=== PATIENT | female | born 1990 | race Caucasian/White ===

== ENCOUNTER 2016-11-28 15:35 | Outpatient (CLI) | payer OTHER ==
[~2016-11-28] VITALS: Ht 170.2 cm; Wt 100.8 kg
[~2016-11-28 15:35] MED LIST: ACET325T33 PO; BACITUD TOP; PRENAT PO
--- NOTE | 2016-11-28 19:00 | RADRPT ---
PROCEDURE: US OB biophysical profile. CLINICAL INDICATION: labor TECHNIQUE: Multiple sonographic images of the pelvis were obtained. The images were reviewed on a PACS workstation. COMPARISON: Obstetrical ultrasound from 10/13/2015 FINDINGS: There is a single viable intrauterine gestation. Cardiac activity is present with 141 beats per min cabazon. There is a breech presentation. The placenta is posterior and fundal in location. There is no evidence of placental abruption. There is a normal amount of amniotic fluid with in maximum vertical pocket of 6.7 cm. Biophysical profile: movement 2/2 tone 2/2. breathing 2/2 MARISELA 2/2 Total 01/24 RPTAT: AA . IMPRESSION: Normal biophysical profile. Physician Anastasia Date Time Electronically viewed and signed by Physician Anastasia on 11/28/2016 18:59 RA/
--- NOTE | 2016-11-28 19:01 | RADRPT ---
PROCEDURE: Obstetrical ultrasound CLINICAL INDICATION: labor, unknown dates TECHNIQUE: Multiple sonographic images of the pelvis were obtained. The images were reviewed on a PACS workstation. COMPARISON: None LMP: 06/24/2016 FINDINGS: The cervix is not well visualized. There is a single viable intrauterine gestation. Cardiac activity is present with 157 beats per minute. There is a breech presentation. The placenta is posterior and fundal. There is no evidence for an abruption or placenta previa. There is a normal amount of amniotic fluid with a maximum vertical pocket of 6.7 cm. Measurements were made in order to determine age. The results are as follows (cm): BPD =5.66 HC =21.22 AC =19.14 FL =4.07 Estimated gestational age by ultrasound of approximately 23 weeks, 3 days. The estimated date of delivery by ultrasound is 03/24/2017. Estimated gestational age by LMP of approximately 22 weeks, 3 days. The estimated date of delivery by LMP is 03/31/2017. EFW = 604 grams (91st percentile) IMPRESSION: Single viable intrauterine gestation of approximately 23 weeks, 3 days . The estimated date of delivery is 03/24/2017 . Dating by ultrasound is within 1 week of dating by LMP. Breech presentation. Estimated weight in the 91st percentile. RPTAT: EE Physician Anastasia Date Time Electronically viewed and signed by Physician Anastasia on 11/28/2016 19:01 JARRETT
[2016-11-28 19:39] VITALS: Ht 170.2 cm; Wt 100.8 kg
[2016-11-28 19:40] VITALS: BP 119/69; PULSE 70; RESP 18
--- NOTE | 2017-01-09 10:33 | QN ---
Documentation Comment dx-false labor DENA FORMAN MD Jan 09, 2017 10:33
== END 2016-11-28 20:30 | disposition home or self-care (01) ==
LOC: OBT 15:35 → L-D 15:38 → OBT 20:30
DX: O60.02 Preterm labor without delivery, second trimester (principal); Z3A.22 22 weeks gestation of pregnancy
CPT/HCPCS: 76815; 76818; Z7500; G0463

== ENCOUNTER 2017-02-23 15:00 | Outpatient (CLI) | payer OTHER ==
--- NOTE | 2016-11-28 23:03 | PN ---
Date/Time of Note Date/Time of Note DATE: 11/28/16 TIME: 22:53 OB Subjective Subjective Subjective 26 Year-old with SIUP at 23 3/7 wks presents with a chief complaint of cold sx. She states had no care. She states good movement. She denies nausea, vomiting, shortness of breath, chest pain, and abdominal pain between contractions, headache, visual changes, vaginal bleeding or LOF. OB Objective Objective Objective General: Patient appears well, alert and oriented, NAD, appropriate mood and affect ABD: gravid, soft, non-tender. Back: No CVA tenderness (B/L) LE: No clubbing, cyanosis, edema, thigh or calf tenderness bilaterally FHT: 135 bpm , moderate variability with acceleration, no deceleration-category I Contractions: None OB Assessment/Plan Other plan: 26 Year-old with SIUP at 23 3/7 wks presents with URTI. Recommend take tylenol and have more rest. - FHR: No sign of metabolic acidosis- Category I - Continuous EFM, toco - Contractions: None. - Symptoms and sign of labor, preeclampsia, kick count discussed with patient, she voiced understanding. All of her questions answered. - Patient was discharged home in stable condition with the appropriate discharge instructions provided. I would like patient to have close follow-up with Chief L[facility] (list of community physician given) in 1-2 days or return to the ER for worsening symptoms or any other urgent concerns. DEWEY GILMORE Nov 28, 2016 23:03
[~2017-02-23] VITALS: Ht 170.2 cm; Wt 106.2 kg
[~2017-02-23 15:00] MED LIST changes: -ACET325T33 PO; -BACITUD TOP
--- NOTE | 2017-02-23 15:02 | TRIAGE ---
OB Triage Datetime Report Generated by CPN: 02/23/2017 15:02 Datetime: 11/28/2016 19:09 Time of Arrival: 11/28/2016 15:25 Arrived By: Ambulatory Arrived From: Home Chief Complaint: WANTS TO CHECK ON THE BABY Additional Patient Complaints: "PT STATES AT 10 WEEKS SHE TOOK A PILL THAT DIDNT WORK AND SHE WANTS TO CHECK ON THE BABY BUT DOES NOT HAVE A OB PROVIDER " Time Provider Notified: 11/28/2016 16:30 Provider Notified: DR. FORMAN Datetime: 11/28/2016 19:08 Labor Evaluation Frequency: 0 Monitor Mode: External Duration (sec)2399: 0 Resting Tone Joaquin: Relaxed Datetime: 11/28/2016 17:15 Assessment Type: Triage Maternal Assessment Level of Consciousness: Fully Conscious DTR's/Clonus: DTRs 2+; No Clonus Headache: Denies Blurred Vision: No Respiratory Effort: Unlabored; Regular Rhythm; Equal Expansion Breath Sounds, Left: Clear and Equal Breath Sounds, Right: Clear and Equal Nausea/Vomiting: Denies RUQ Epigastric Pain: Denies Facial Edema: None Fall Risk Assessment History of Falling: (0) No Secondary Diagnosis: (0) No Ambulatory Aid: (0) Bedrest/Nurse Assist IV Therapy: (0) No Gait: (0) Normal/Bedrest/Immobile Mental Status: (0) Oriented to Own Ability Fall Score: 0 Fall Risk Score Definition: No Risk: No action required Datetime: 11/28/2016 17:00 Stage of : OB Triage Maternal Assessment Level of Consciousness: Fully Conscious DTR's/Clonus: DTRs 2+; No Clonus Headache: Denies Blurred Vision: No Respiratory Effort: Unlabored; Regular Rhythm; Equal Expansion Breath Sounds, Left: Clear and Equal Breath Sounds, Right: Clear and Equal Nausea/Vomiting: Denies RUQ Epigastric Pain: Denies Lower Extremities Edema: None Degree: None Upper Extremities Edema: None Degree: None Facial Edema: None Temperature Route: Axillary Fall Risk Assessment History of Falling: (0) No Secondary Diagnosis: (0) No Ambulatory Aid: (0) Bedrest/Nurse Assist IV Therapy: (0) No Gait: (0) Normal/Bedrest/Immobile Mental Status: (0) Oriented to Own Ability Fall Score: 0 Fall Risk Score Definition: No Risk: No action required Datetime: 11/28/2016 16:58 Labor Evaluation Frequency: 0 Monitor Mode: External Duration (sec)2399: 0 Resting Tone Joaquin: Relaxed Heart Rate FHR Baseline Rate: 150 Variability: Moderate 6-25 bpm Accelerations: 15X15 Decelerations: None Category: Category I Datetime: 11/28/2016 16:56 Comments: NST REACTIVE FOR GESTATIONAL AGE
[2017-02-23 15:21] VITALS: Ht 170.2 cm; Wt 106.2 kg
[2017-02-23 15:22] VITALS: BP 126/82; PULSE 105
--- NOTE | 2017-02-23 15:51 | RADRPT ---
PROCEDURE: OB ultrasound for biophysical profile CLINICAL INDICATION: well being. Limited care. TECHNIQUE: Multiple sonographic images of the pelvis were obtained. Transabdominal view of the gr avid uterus are available for review. The images were reviewed on a PACS workstation. COMPARISON: OB ultrasound 11/28/2016 FINDINGS: breathing movement = 2/2 tone = 2/2 motion = 2/2 MARISELA = 2/2 MARISELA = 11.6 cm Single live intrauterine with cardiac activity. heart rate equals 150 beats p er minute. Presentation is cephalic. The placenta is fundal. IMPRESSION: 1. Single viable intrauterine gestation. 2. Biophysical profile = 8/8. 3. MARISELA = 11.6 cm. RPTAT: KK .Marck Gamez MD, MD Date Time Electronically viewed and signed by .Marck Gamez MD, MD on 02/23/2017 15:51 .B/
--- NOTE | 2017-02-23 17:44 | CONS ---
Date/Time of Note Date/Time of Note DATE: 02/23/17 TIME: 17:36 Consultation Date/Type/Reason Admit Date/Time February 23, 2017 OB triage consult This patient is a 26 years old 7 para 2 for who had both delivered by section. Her estimated date of confinement is March 17 which makes her 36 weeks and 6 days. She came to triage complaining of pain of abdomen and contractions. On examination she is well-developed well-nourished woman near term. Abdomen is soft no active labor pattern could be identified. heart tracing is normal with fairly good variability and acceleration no decelerations. Her general vital signs are within normal limits with a blood pressure of 126/82 , pulse rate of 105 respiration 18,, and temperature of 97.9. On pelvic examination the cervix was closed long effaced with intact membranes Constitutional: No chills, No diaphoresis, No disoriented, No febrile, No improved, No no complaints, No other, No poor po, No requiring IVF, No requiring O2 Eyes: No discharge, No no complaints, No other, No pain, No redness, No visual change ENT: No bleeding, No congestion, No discharge, No dysphagia, No no complaints, No other, No pain, No sore throat Respiratory: No cough, No no complaints, No other, No pain, No pleuritic pain, No shortness of breath, No sputum, No wheezing Cardiovascular: No chest pain, No edema, No lightheadedness, No no complaints, No orthopenea, No other, No palpitations, No paroxysmal nocturnal dyspnea Gastrointestinal: No blood, No constipation, No decreased appetite, No diarrhea , No flatus, No nausea, No no complaints, No other, No pain, No passing stool, No vomiting Genitourinary: other (As I mentioned on pelvic examination the cervix was closed long with intact membranes), No bleeding, No discharge, No dysuria, No flank pain, No hematuria, No no complaints Musculoskeletal: No back pain, No bone/joint pain, No neck pain, No no complaints, No other, No restricted range of motion, No swelling Skin: No bruising, No erythema, No laceration, No no complaints, No other, No pruritis, No rash, No skin lesions Neurologic: No confusion, No dizziness, No focal-weakness, No headache, No no complaints, No other, No seizure, No syncope Endocrine: No dry skin, No no complaints, No other, No polydypsia, No polyuria , No temp intolerance Additional Comments On ultrasound study the result was single live intrauterine with cardiac activity 150 bpm in cephalic presentation amniotic fluid index was 11.6 cm her biophysical profile was reported 01/24. Disposition. With these normal finding a lack of evidence of any labor pattern she was reassured and was discharged home to be seen by her claims support specialist and to return to the hospital in case of any complication vaginal bleeding or true contractions Social History Smoking Status: Never smoker Exam/Review of Systems Vital Signs Vitals Vital Signs Date Time Temp Pulse Resp B/P Pulse Ox O2 Delivery O2 Flow Rate FiO2 02/23/17 15:22 97.9 105 126/82 IRLANDA MOTT MD Feb 23, 2017 17:44
== END 2017-02-23 17:40 | disposition home or self-care (01) ==
LOC: OBT 15:00 → L-D 15:00 → OBT 17:40
DX: O62.9 Abnormality of forces of labor, unspecified (principal); Z3A.36 36 weeks gestation of pregnancy
CPT/HCPCS: 76818; Z7500; G0463

== ENCOUNTER 2017-03-18 15:58 | Outpatient (CLI) | payer OTHER ==
[~2017-03-18] VITALS: Ht 170.2 cm; Wt 110.2 kg
--- NOTE | 2017-03-18 16:55 | RADRPT ---
PROCEDURE: US biophysical profile. CLINICAL INDICATION: Contractions. TECHNIQUE: Multiple sonographic images of the uterus were obtained. The images were revi ewed on a PACS workstation. COMPARISON: 02/23/2017 FINDINGS: There is a single live intrauterine gestation. heart rate is 128 beats per minute. The position is cephalic. The placenta is right lateral grade II with no abruption or previa. The MARISELA is 11.4 cm. (Normal = 5-20 cm.) Breathing Movement: 2 Gross Body Movement: 2 Tone: 2 Qualitative Amniotic Fluid Volume: 2 TOTAL: 8 IMPRESSION: 1. The biophysical score is 8/8. RPTAT: QQ .Valente Moser MD, MD Date Time Electronically viewed and signed by .Valente Moser MD, on 03/18/2017 16:55 .R/
[2017-03-18 18:05] VITALS: BP 123/79; PULSE 83; RESP 18; Ht 170.2 cm; Wt 110.2 kg
--- NOTE | 2017-03-18 18:42 | RADRPT ---
PROCEDURE: Obstetrical ultrasound. CLINICAL INDICATION: , evaluation. Pelvic pain. Post dates TECHNIQUE: Transabdominal sonographic images of the uterus obtained after first trimester , greater than 14 weeks gestation. Single intrauterine gestation present. COMPARISON: 03/18/2017 FINDINGS: Single intrauterine gestation. There is a cephalic presentation. Measurements were made in order to determine age. The results are as follows: BPD = 39 weeks 2 day(s) HC = 38 weeks 5 day(s) AC = 39 weeks 4 day(s) FL = 39 weeks 0 day(s) MARISELA = not measured Heart rate = 161 beats per minute The placenta is fundal. There is no evidence for an abruption or placenta previa. Ovaries are not visualized. IMPRESSION: Single intrauterine gestation of approximately 39 weeks 1 days by ultrasound criteria. [place] estimated weight = 3764 g RPTAT: AADD .Angelo Parra MD, MD Date Time Electronically viewed and signed by .Angelo Parra MD, on 03/18/2017 18:42 .B/
[2017-03-18 19:15] LABS: ABNORMAL IP MESSAGE 1; HEMATOCRIT 32.7 % (37.0-47.0); HEMOGLOBIN 9.4 g/dl (12.0-16.0); MEAN CORPUSCULAR HEMOGLOBIN 20.6 pg (29.0-33.0); MEAN CORPUSCULAR HGB CONC 28.7 g/dl (32.0-37.0); MEAN CORPUSCULAR VOLUME 71.7 fl (82.0-101.0); PLATELET COUNT 179 10^3/UL (140-415); RED BLOOD COUNT 4.56 10^6/ul (4.20-5.40); RED CELL DISTRIBUTION WIDTH 18.5 % (11.5-14.5); WHITE BLOOD COUNT 8.6 10^3/ul (4.8-10.8)
[2017-03-18 19:20] LABS: POSITIVE DIFF @See below
[2017-03-18 19:42] LABS: ADD UMIC NO; UR ASCORBIC ACID 40 mg/dL (NEGATIVE); UR BILIRUBIN (Dip) NEGATIVE (NEGATIVE); UR BLOOD (Dip) NEGATIVE (NEGATIVE); UR CLARITY SLIGHTLY CLOUDY (CLEAR); UR COLOR YELLOW (YELLOW); UR GLUCOSE (Dip) NEGATIVE (NEGATIVE); UR KETONES (Dip) NEGATIVE (NEGATIVE); UR LEUKOCYTE ESTERASE (Dip) NEGATIVE Leu/ul (NEGATIVE); UR NITRITE (Dip) NEGATIVE (NEGATIVE); UR RBC 1 /HPF (0-5); UR SPECIFIC GRAVITY (Dip) 1.018 (1.003-1.030); UR SQUAMOUS EPITHELIAL CELL FEW /HPF (FEW); UR TOTAL PROTEIN (Dip) NEGATIVE (NEGATIVE); UR UROBILINOGEN (Dip) NEGATIVE (NEGATIVE)
[2017-03-18 20:00] LABS: BARBITURATES Negative (NEGATIVE); BENZODIAZEPINES Negative (NEGATIVE); CANNABINOIDS Negative (NEGATIVE); COCAINE Negative (NEGATIVE); OPIATES Negative (NEGATIVE)
[2017-03-18 20:07] LABS: ANISOCYTOSIS 2+ (0-0); EOSINOPHILS % (M) 2 % (0-7); GIANT THROMBO% (M) 1 % (0-0); HYPOCHROMASIA 2+ (0-0); MICROCYTOSIS 2+ (0-0); MONOCYTES % (M) 5 % (0-11); PLATELET ESTIMATE NORMAL; POIKILOCYTOSIS 1+ (0-0); POLYCHROMASIA 2+ (0-0)
--- NOTE | 2017-03-18 21:35 | PN ---
Triage Information Date/Time Reason for visit: DFM Weeks of Gestation 41w 1d /Para 7/2 Diabetes: none Hypertention: none Additional information Previous x 2. Pt says she went to [facility] twice and then they told her she was too high risk and couldn't take care of her so they sent her to [facility] and she went there and they also did not arrange to deliver her. PMHx: none. PSHx: C-S x 2. NKDA. Objective Vital Signs Date Time Temp Pulse Resp B/P Pulse Ox O2 Delivery O2 Flow Rate FiO2 03/18/17 18:05 98.4 83 18 123/79 Room Air Heart Rate: 140's Heart Rate Comments Reactive. No decels. Contractions: None Results/Medications Result Diagram: 03/18/171905 Results 24 hrs Laboratory Tests Test 03/18/17 16:15 03/18/17 19:06 Urine Color YELLOW Urine Clarity SLIGHTLY CLOUDY A Urine pH 6.0 Urine Specific [place] 1.018 Urine Ketones NEGATIVE Urine Nitrite NEGATIVE Urine Bilirubin NEGATIVE Urine Urobilinogen NEGATIVE Urine Leukocyte Esterase NEGATIVE Urine Microscopic RBC 1 Urine Microscopic WBC 2 Urine Squamous Epithelial Cells FEW Urine Hemoglobin NEGATIVE Urine Glucose NEGATIVE Urine Total Protein NEGATIVE Urine Opiates Screen Negative Urine Barbiturates Negative Urine Amphetamines Screen Negative Urine Benzodiazepines Screen Negative Urine Cocaine Screen Negative Urine Cannabinoids Negative White Blood Count 8.6 Red Blood Count 4.56 Hemoglobin 9.4 L Hematocrit 32.7 L Mean Corpuscular Volume 71.7 L Mean Corpuscular Hemoglobin 20.6 L Mean Corpuscular Hemoglobin Concent 28.7 L Red Cell Distribution Width 18.5 H Platelet Count 179 Mean Platelet Volume Segmented Neutrophils % (Manual) 74 Lymphocytes % (Manual) 20 Monocytes % (Manual) 5 Eosinophils % (Manual) 2 Nucleated Red Blood Cells % 0.0 Absolute Lymphocytes (Manual) 1.7 Absolute Monocytes (Manual) 0.4 Platelet Estimate NORMAL Giant Platelets 1 H Polychromasia 2+ Hypochromasia 2+ Poikilocytosis 1+ Anisocytosis 2+ Microcytosis 2+ Hepatitis B Surface Antigen NEGATIVE HIV (1&2) Antibody NEGATIVE Imaging Results BPP 01/24 MARISELA 11.4 cm. EFW 3794 grams. Disposition: Discharge Assessment/Plan A: IUP at 41w 1d. Postdates. Minimal PNC. P: Too much activity to do a tonight and there are 4 scheduled c- sections tomorrow so have scheduled the pt for a repeat at [address] Dugan on Tuesday 03/20 and gave the pt pre-op instructions. Pt is very happy to have a plan. AMBAR MCKEON MD Mar 18, 2017 21:35
--- NOTE | 2017-03-19 03:12 | TRIAGE ---
OB Triage Datetime Report Generated by CPN: 03/19/2017 03:11 Datetime: 03/18/2017 21:07 Membrane Status: Intact Datetime: 03/18/2017 21:00 Stage of : OB Triage Labor Evaluation Frequency: Occasional Monitor Mode: External Duration (sec)2399: 50-70 Quality: Mild Pattern: Normal: <= 5 Contractions in 10 Minutes Resting Tone [employer]: Relaxed Heart Rate FHR Baseline Rate: 135 Monitor Mode: External US FHR Baseline Changes: No Baseline Change Variability: Moderate 6-25 bpm Accelerations: 15X15 Decelerations: None Category: Category I Datetime: 03/18/2017 20:00 Stage of : OB Triage Labor Evaluation Frequency: Occasional Monitor Mode: External Duration (sec)2399: 50-70 Quality: Mild Pattern: Normal: <= 5 Contractions in 10 Minutes Contraction Comments: Pt denies Heart Rate FHR Baseline Rate: 140 Monitor Mode: External US FHR Baseline Changes: No Baseline Change Variability: Moderate 6-25 bpm Accelerations: 15X15 Decelerations: None Category: Category I Datetime: 03/18/2017 17:58 Assessment Type: Triage Maternal Assessment Level of Consciousness: Fully Conscious DTR's/Clonus: DTRs 2+; No Clonus Headache: Denies Blurred Vision: No Respiratory Effort: Unlabored; Regular Rhythm; Equal Expansion Breath Sounds, Left: Clear and Equal Breath Sounds, Right: Clear and Equal Nausea/Vomiting: Denies RUQ Epigastric Pain: Denies Lower Extremities Edema: None Degree: None Upper Extremities Edema: None Degree: None Facial Edema: None Fall Risk Assessment History of Falling: (0) No Secondary Diagnosis: (0) No Ambulatory Aid: (0) Bedrest/Nurse Assist IV Therapy: (0) No Gait: (0) Normal/Bedrest/Immobile Mental Status: (0) Oriented to Own Ability Fall Score: 0 Fall Risk Score Definition: No Risk: No action required Datetime: 03/18/2017 17:49 Time of Arrival: 03/18/2017 15:54 EGA: 41.1 Arrived By: Ambulatory Arrived From: Home Chief Complaint: C/O DFM Movement: Decreased Contractions: Denies/Absent Rupture of Membranes: Denies Vaginal Bleeding: None Vaginal Discharge: Denies Recent Sexual Intercouse: Denies Abdominal Trauma: Not Applicable Patient Complaints: None Time Provider Notified: 03/18/2017 18:00 Provider Notified: KAUR Initial Plan: BPP/EFW Datetime: 02/23/2017 17:23 Stage of : OB Triage Datetime: 02/23/2017 17:21 Labor Evaluation Frequency: 0 Monitor Mode: External Resting Tone [employer]: Relaxed Heart Rate FHR Baseline Rate: 135 Monitor Mode: External US Variability: Moderate 6-25 bpm Accelerations: 15X15 Decelerations: None Category: Category I Pain Assessment Pain Scale: 0 Pain Presence: None/Denies Pain Type: N/A Pain Goal: 3 Pain Relief Measures: Comfort Measures Datetime: 02/23/2017 16:32 Labor Evaluation Frequency: 0 Monitor Mode: External Resting Tone [employer]: Relaxed Heart Rate FHR Baseline Rate: 135 Monitor Mode: External US Variability: Moderate 6-25 bpm Accelerations: 10X10 Decelerations: None Category: Category I Pain Assessment Pain Scale: 0 Pain Presence: None/Denies Pain Type: N/A Pain Goal: 3 Pain Relief Measures: Comfort Measures Datetime: 02/23/2017 16:04 Stage of : OB Triage Datetime: 02/23/2017 15:25 Vaginal Exam Dilatation (cms): 0.0 Effacement (%): 20 Station: -2 Exam By: s sid Vaginal Bleeding: None Cervix, Consistency: Soft Cervix, Position: Posterior Presentation 'A': Cephalic Datetime: 02/23/2017 15:18 Stage of : OB Triage Assessment Type: Triage Maternal Assessment Level of Consciousness: Fully Conscious DTR's/Clonus: DTRs 2+; No Clonus Headache: Denies Blurred Vision: No Respiratory Effort: Unlabored; Regular Rhythm; Equal Expansion Breath Sounds, Left: Clear and Equal Breath Sounds, Right: Clear and Equal Nausea/Vomiting: Denies RUQ Epigastric Pain: Denies Facial Edema: None Temperature Route: Axillary Fall Risk Assessment History of Falling: (0) No Secondary Diagnosis: (0) No Ambulatory Aid: (0) Bedrest/Nurse Assist IV Therapy: (0) No Gait: (0) Normal/Bedrest/Immobile Mental Status: (0) Oriented to Own Ability Fall Score: 0 Fall Risk Score Definition: No Risk: No action required Labor Evaluation Frequency: APPLIED Monitor Mode: External Resting Tone [employer]: Relaxed Heart Rate FHR Baseline Rate: 145 Monitor Mode: External US Variability: Moderate 6-25 bpm Decelerations: None Pain Assessment Pain Scale: 8 Pain Presence: Intermittent Pain Type: Cramping; Contraction Pain Location: Abdomen Pain Goal: 3 Pain Relief Measures: Comfort Measures Datetime: 02/23/2017 15:16 Time of Arrival: 02/23/2017 14:50 EGA: 37.6 Arrived By: Ambulatory Arrived From: Home Chief Complaint: C/O UC'S SINCE THIS AM, BLEEDING OR LEAKING OF FLUID Movement: Decreased Contractions: Irregular Contractions: Q1 HOUR Rupture of Membranes: Denies Vaginal Bleeding: None Vaginal Discharge: Denies Recent Sexual Intercouse: Denies Abdominal Trauma: Not Applicable Patient Complaints: Contractions Time Provider Notified: 02/23/2017 16:04 Provider Notified: foroohar Initial Plan: MONITOR, VE, Datetime: 11/28/2016 19:45 EGA: 25.3 Datetime: 11/28/2016 17:15 Fall Score: 0 Fall Risk Score Definition: No Risk: No action required Datetime: 11/28/2016 17:00 Fall Score: 0 Fall Risk Score Definition: No Risk: No action required
[2017-03-21 13:43] LABS: RUBELLA ANTIBODY - IGG 4.21 index
== END 2017-03-18 21:36 | disposition home or self-care (01) ==
LOC: OBT 15:58 → L-D 15:59 → OBT 21:36
PROVIDERS: ATTEND Obstetrics & Gynecology
DX: O36.8130 Decreased fetal movements, third trimester, not applicable or unspecified (principal); Z3A.41 41 weeks gestation of pregnancy
CPT/HCPCS: 76815; 76818; 80307; 81001; 85025; 86592; 86703; 86762; 86900; 86901; 87340; Z7500; 81003; G0463

== ENCOUNTER 2017-03-20 05:54 | Inpatient (IN) | payer OTHER ==
[~2017-03-20] VITALS: Ht 170.2 cm; Wt 110.9 kg
[2017-03-20] MEDS ORDERED: LACTATED RINGER'S 1,000 ML IV SCH (06:06)
[2017-03-20 06:29] VITALS: Ht 170.2 cm; Wt 110.9 kg
[2017-03-20 06:30] VITALS: BP 131/90; PULSE 105; RESP 18
[2017-03-20] MEDS ORDERED: OXYTOCIN 30 UNITS/LR 500 ML IV PRN ×2 (06:30→11:30)
[2017-03-20] MEDS ORDERED: OXYTOCIN 30 UNITS/LR 500 ML IV SCH (06:30)
[2017-03-20] MEDS ORDERED: CARBOPROST 250 MCG INJ IM PRN ×2 (06:30→11:30)
[2017-03-20] MEDS ORDERED: METHYLERGONOVINE 0.2 MG INJ IM PRN ×2 (06:30→11:30)
[2017-03-20] MEDS ORDERED: CEFAZOLIN 2 GM/50 ML (PMX) 50 ML IV SCH (06:30)
[2017-03-20] MEDS ORDERED: MISOPROSTOL 200 MCG TAB PR PRN ×2 (06:30→11:30)
[2017-03-20 06:37] LABS: ABNORMAL IP MESSAGE 1; BASOPHIL # 0.1 10^3/ul (0.0-0.1); BASOPHILS % 0.6 % (0.0-2.0); EOSINOPHILS # 0.1 10^3/ul (0.0-0.5); EOSINOPHILS % 0.9 % (0.0-7.0); HEMATOCRIT 30.2 % (37.0-47.0); HEMOGLOBIN 8.9 g/dl (12.0-16.0); LYMPHOCYTES # 2.3 10^3/ul (0.8-2.9); LYMPHOCYTES % 27.7 % (15.0-51.0); MEAN CORPUSCULAR HEMOGLOBIN 21.1 pg (29.0-33.0); MEAN CORPUSCULAR HGB CONC 29.5 g/dl (32.0-37.0); MEAN CORPUSCULAR VOLUME 71.7 fl (82.0-101.0); MONOCYTE # 0.8 10^3/ul (0.3-0.9); MONOCYTES % 8.9 % (0.0-11.0); NEUTROPHIL # 5.2 10^3/ul (1.6-7.5); NEUTROPHILS % 61.5 % (39.0-77.0); PLATELET COUNT 172 10^3/UL (140-415); RED BLOOD COUNT 4.21 10^6/ul (4.20-5.40); RED CELL DISTRIBUTION WIDTH 18.5 % (11.5-14.5); WHITE BLOOD COUNT 8.4 10^3/ul (4.8-10.8)
[2017-03-20 06:50] LABS: POSITIVE DIFF @See below
[2017-03-20 07:04] LABS: INR 0.91; PROTIME 12.3 Sec (12.2-14.2)
[2017-03-20 07:05] LABS: PARTIAL THROMBOPLASTIN TIME 28.3 Sec (25.0-35.0)
[2017-03-20] MEDS ORDERED: morphine SULFATE/PF (10 MG/10 ML) INJ ONE (07:40)
[2017-03-20] MEDS ORDERED: FENTAnyl 50 MCG/ML VIAL ONE (07:41)
[2017-03-20] MEDS ORDERED: PHENYLephrine (100 MCG/ML) 5ML SYG ONE ×2 (07:41→08:19)
[2017-03-20] MEDS ORDERED: DEXAMETHASONE 4 MG/ML 1 ML INJ ONE (07:56)
[2017-03-20] MEDS ORDERED: ONDANSETRON 4 MG INJ ONE (07:56)
--- NOTE | 2017-03-20 08:43 | SIPON ---
Date/Time of Note Date/Time of Note DATE: 03/20/17 TIME: 08:41 Operative Report Preoperative Diagnosis iup 41 weeks with some contractions ho of c/s x2 desires repeat Postoperative Diagnosis same Operation/Procedure Performed repeat lstc/s Surgeon see signature line human resources assistant manager ashley chavis Anesthesia: spinal Estimated blood loss: other Transfusion Required none Specimen placenta Grafts/Implants none Complications none DENA FORMAN MD Mar 20, 2017 08:43
[2017-03-20] MEDS ORDERED: KETOROLAC 30 MG INJ IV PRN (09:00)
[2017-03-20] MEDS ORDERED: ONDANSETRON 4 MG INJ IV PRN (09:00)
[2017-03-20] MEDS ORDERED: NALOXONE (0.4 MG/ML) INJ IV PRN (09:00)
[2017-03-20] MEDS ORDERED: HYDROmorphONE 1 MG/ML SYG IV PRN (09:00)
[2017-03-20] MEDS ORDERED: TRIMETHOBENZAMIDE 100 MG/ML VIAL IM PRN (09:00)
[2017-03-20] MEDS ORDERED: ZOLPIDEM 5 MG TAB PO PRN (09:00)
--- NOTE | 2017-03-20 09:38 | HP ---
DATE OF ADMISSION: 03/20/2017 HISTORY OF PRESENT ILLNESS: The patient is a 26-year-old G7, P2, who presents at 41 weeks complaining of uterine contractions. The patient has a history of section x2 and limited care. The patient presents with some contractions and pain. PAST MEDICAL HISTORY: None. PAST SURGICAL HISTORY: section x2. MEDICATIONS: vitamins. PHYSICAL EXAMINATION: VITAL SIGNS: Stable. HEART: Regular rhythm. LUNGS: Clear to auscultation bilaterally. ABDOMEN: Soft, nontender, no guarding. Fundal height is 40 cm. EXTREMITIES: No edema. IMPRESSION: Intrauterine at 41 weeks. The patient presents with cramping and in labor. The patient presented for repeat section. Risks and benefits discussed. Risks of infection, bleeding, damage to organs, possibility of blood transfusion all discussed with patient. The patient understands and consents to procedure. Dictated By: Dawit Dugan MD /kevin/nayeli /Document#: [id number]
--- NOTE | 2017-03-20 09:44 | OPR ---
DATE OF OPERATION: 03/20/2017 PREOPERATIVE DIAGNOSIS: 1. Intrauterine at 41 weeks. 2. Patient with a history of section x2 and desires repeat. 3. Patient presents in labor. POSTOPERATIVE DIAGNOSIS: 1. Intrauterine at 41 weeks. 2. Patient with a history of section x2 and desires repeat. 3. Patient presents in labor. SURGEON: Dawit Dugan MD MASTER TECHNICIAN: OPERATIVE PROCEDURE: Repeat low-segment transverse section. FINDINGS: 1. Viable . 2. Uterine window. 3. Normal tubes and ovaries. SPECIMEN: Placenta. ESTIMATED BLOOD LOSS: 600 COMPLICATIONS: None. INDICATIONS: The patient is a 26-year-old G7, P2 who presents at 41 weeks with poor care, complaining of some contractions. The patient has a history of section x2 and desires repeat. Risks and benefits discussed including infection, bleeding, damage to organs, possibility of blood transfusion all discussed with patient. Patient consents to the repeat section. DESCRIPTION OF PROCEDURE: The patient was taken to the operating room where spinal was felt to be adequate. The patient was then prepped and draped in normal sterile fashion. After spinal was confirmed, using a scalpel, a Pfannenstiel incision was made. Incision was taken down to underlying fascia. The fascia was nicked in the midline and extended laterally in both directions using Mcgill scissors. The fascia was taken off the rectus muscles both superiorly and inferiorly. The peritoneum identified, entered bluntly. Incision was extended superiorly and inferiorly. Bladder blade placed in. Bladder flap created. The bladder flap was then taken down. At this point, it was noted that the patient had a uterine window. Bladder flap was then created down and a higher incision had to be made. The incision was then done. The uterine incision was extended with manual extension. The infant's head was delivered atraumatically, bulb suctioned and the rest of the infant was delivered. Cord cut and clamped. A second delay was done. The placenta was delivered. Uterus exteriorized and cleared of all blood clots and debris. Uterine incision was closed with 0 Monocryl in running fashion, second imbricating layer was also placed. The uterus was packed into the abdominal cavity. Good hemostasis was noted. The blood was cleared from the gutters. The rectus muscles and peritoneum were brought together in the midline using a 2-0 Vicryl. The fascia was closed with 0 Vicryl. Subcu fat was closed with 3-0 plain. The skin was closed with zachary. The patient tolerated the procedure well. Needle counts correct x2. The patient was taken to recovery. Dictated By: Dawit Dugan MD /kevin/nayeli /Document#: [id number]
[2017-03-20] MEDS: DIPHENHYDRAMINE 50 MG INJ IV PRN ×2 (10:12→18:44)
[2017-03-20] MEDS ORDERED: LANOLIN 7 GM TUBE TOP PRN (11:30)
[2017-03-20 11:40] VITALS: BP 117/74; PULSE 79; RESP 18
[2017-03-20] MEDS: HYDROmorphONE 1 MG/ML SYG IV PRN ×2 (11:55→21:27)
[2017-03-20 12:15] VITALS: BP 114/73; PULSE 85; RESP 18
[2017-03-20 15:15] VITALS: BP 118/62; PULSE 86; RESP 18
[2017-03-20] MEDS: OXYTOCIN 30 UNITS/LR 500 ML IV SCH (15:15)
[2017-03-20] MEDS: LACTATED RINGER'S 1,000 ML IV SCH (18:44)
[2017-03-20] MEDS: IBUPROFEN 800 MG TAB PO SCH ×2 (19:00→22:00)
[2017-03-20 20:25] VITALS: BP 125/81; PULSE 90; RESP 18
[2017-03-20 23:30] VITALS: BP 121/80; PULSE 92; RESP 18
[2017-03-21] MEDS: LACTATED RINGER'S 1,000 ML IV SCH ×4 (02:01→18:31)
[2017-03-21 04:15] VITALS: BP 104/65; PULSE 85; RESP 18
[2017-03-21] MEDS: DIPHENHYDRAMINE 50 MG INJ IV PRN (04:21)
[2017-03-21] MEDS: IBUPROFEN 800 MG TAB PO SCH ×3 (06:00→22:30)
[2017-03-21 08:30] VITALS: BP 124/75; PULSE 91; RESP 16
[2017-03-21] MEDS ORDERED: OXYCODONE/ACETAMINOPHEN (5/325) TAB PO PRN (08:30)
[2017-03-21] MEDS: PRENATAL VITAMIN PO SCH (08:57)
[2017-03-21] MEDS: OXYCODONE/ACETAMINOPHEN (5/325) TAB PO PRN ×2 (08:58→15:41)
[2017-03-21] MEDS: OXYTOCIN 30 UNITS/LR 500 ML IV SCH (09:00)
[2017-03-21 11:36] LABS: ABNORMAL IP MESSAGE 1; BASOPHILS % 0.2 % (0.0-2.0); EOSINOPHILS % 0.5 % (0.0-7.0); HEMATOCRIT 26.5 % (37.0-47.0); HEMOGLOBIN 7.1 g/dl (12.0-16.0); LYMPHOCYTES # 2.5 10^3/ul (0.8-2.9); LYMPHOCYTES % 30.5 % (15.0-51.0); MEAN CORPUSCULAR HGB CONC 26.8 g/dl (32.0-37.0); MEAN CORPUSCULAR VOLUME 74.6 fl (82.0-101.0); MONOCYTE # 0.5 10^3/ul (0.3-0.9); NEUTROPHILS % 62.1 % (39.0-77.0); PLATELET COUNT 160 10^3/UL (140-415); RED BLOOD COUNT 3.55 10^6/ul (4.20-5.40); RED CELL DISTRIBUTION WIDTH 18.9 % (11.5-14.5); WHITE BLOOD COUNT 8.1 10^3/ul (4.8-10.8)
[2017-03-21 11:54] LABS: MEAN PLATELET VOLUME 12.7 fl (7.4-10.4); POSITIVE DIFF @See below
[2017-03-21 13:42] LABS: RUBELLA ANTIBODY - IGG 3.89 index
[2017-03-21 15:43] VITALS: BP 119/65; PULSE 92; RESP 16
--- NOTE | 2017-03-21 16:31 | PN ---
Date/Time of Note Date/Time of Note DATE: 03/21/17 TIME: 16:29 OB Subjective Subjective Subjective Post C section day 1 Doing Well Afebrile Ambulatory Chest Clear Breasts are soft , Nipples are intact Abdomen is soft Fundus is firm Moderate amount of lochia Incision is clean ,No evidence of infection No calf tenderness No ankle edema Laboratory Tests Test 03/21/17 10:28 White Blood Count 8.110^3/ul Red Blood Count 3.5510^6/ul Hemoglobin 7.1g/dl Hematocrit 26.5% Mean Corpuscular Volume 74.6fl Mean Corpuscular Hemoglobin 20.0pg Mean Corpuscular Hemoglobin Concent 26.8g/dl Red Cell Distribution Width 18.9% Platelet Count 78800^3/UL Mean Platelet Volume 12.7fl Neutrophils % 62.1% Lymphocytes % 30.5% Monocytes % 6.0% Eosinophils % 0.5% Basophils % 0.2% Nucleated Red Blood Cells % 0.0/100WBC Neutrophils # 5.010^3/ul Lymphocytes # 2.510^3/ul Monocytes # 0.510^3/ul Eosinophils # 0.010^3/ul Basophils # 0.010^3/ul Nucleated Red Blood Cells # 0.010^3/ul Rapid Plasma Reagin NONREACTIVE Current Medications Medications (Trade) Dose Ordered Sig/Jace Route PRN Reason Start Time Stop Time Status Last Admin Dose Admin Lactated Ringer's 1,000 ml @ 125 mls/hr Q8H IV 03/20/17 06:06 03/20/17 11:05 DC 03/20/17 06:06 Cefazolin Sodium/ Dextrose 50 ml @ 100 mls/hr ONCE IV 03/20/17 06:30 03/20/17 11:05 DC 03/20/17 08:01 Oxytocin/Lactated Ringer's 500 ml @ 125 mls/hr ONCE IV 03/20/17 06:30 03/20/17 11:05 DC 03/20/17 10:15 Oxytocin/Lactated Ringer's 500 ml @ 0 mls/hr ONCE PRN IV For Hemorrhage Management 03/20/17 06:30 03/20/17 11:05 OK Methylergonovine Maleate (Methergine) 0.2 mg ONCE PRN IM VAGINAL BLEEDING 03/20/17 06:30 03/20/17 11:05 DC Carboprost Tromethamine (Hemabate) 250 mcg ONCE PRN IM VAGINAL BLEEDING 03/20/17 06:30 03/20/17 11:05 DC Misoprostol (Cytotec) 1,000 mcg ONCE PRN MA VAGINAL BLEEDING 03/20/17 06:30 03/20/17 11:05 DC Morphine Sulfate (Duramorph) 10 mg STK-MED ONCE .ROUTE 03/20/17 07:40 03/20/17 07:41 DC Fentanyl (Sublimaze) 100 mcg STK-MED ONCE .ROUTE 03/20/17 07:41 03/20/17 07:42 DC Phenylephrine HCl (Raphael-Synephrine Inj Syg) 500 mcg STK-MED ONCE .ROUTE 03/20/17 07:41 03/20/17 07:42 DC Ondansetron HCl (Zofran Inj) 4 mg STK-MED ONCE .ROUTE 03/20/17 07:56 03/20/17 07:57 DC Dexamethasone (Decadron) 4 mg STK-MED ONCE .ROUTE 03/20/17 07:56 03/20/17 07:57 DC Phenylephrine HCl (Raphael-Synephrine Inj Syg) 500 mcg STK-MED ONCE .ROUTE 03/20/17 08:19 03/20/17 08:20 DC Naloxone HCl (Narcan) 0.1 mg Q2M PRN IV FOR RESP RATE 8 OR LESS 03/20/17 09:00 03/21/17 08:59 DC Ketorolac Tromethamine (Toradol) 30 mg Q6H PRN IV PAIN 03/20/17 09:00 03/21/17 08:59 DC 03/20/17 10:12 Hydromorphone HCl (Dilaudid) 0.2 mg Q3H PRN IV PAIN LEVEL 1-5 03/20/17 09:00 03/21/17 08:59 DC Hydromorphone HCl (Dilaudid) 0.4 mg Q3H PRN IV PAIN LEVEL 6-10 03/20/17 09:00 03/21/17 08:59 DC 03/20/17 21:27 Diphenhydramine HCl (Benadryl) 25 mg Q6H PRN IV ITCHING 03/20/17 09:00 03/21/17 08:59 DC 03/21/17 04:21 Ondansetron HCl (Zofran Inj) 4 mg Q6H PRN IV NAUSEA AND/OR VOMITING 03/20/17 09:00 03/21/17 08:59 DC Trimethobenzamide HCl (Tigan) 200 mg Q6H PRN IM NAUSEA AND/OR VOMITING 03/20/17 09:00 03/21/17 08:59 DC Zolpidem Tartrate 5 mg 5 mg HS MAY REPEAT X 1 PRN PO INSOMNIA 03/20/17 09:00 03/21/17 08:59 DC Lactated Ringer's 1,000 ml @ 125 mls/hr Q8H IV 03/20/17 11:01 03/21/17 02:01 Oxytocin/Lactated Ringer's 500 ml @ 125 mls/hr Q4H IV 03/20/17 11:01 03/20/17 19:00 DC 03/20/17 15:15 Ibuprofen (Motrin) 800 mg Q8 PO 03/20/17 14:00 03/21/17 13:41 Simethicone (Mylicon) 160 mg Q8H PRN PO DISTENSION/GAS/BLOATING 03/20/17 11:30 Lanolin 1 applic 1 applic BEDSIDE MEDICATION PRN TOP BEDSIDE FOR SHAWANDA TO NIPPLES 03/20/17 11:30 03/20/17 18:43 Oxytocin/Lactated Ringer's 500 ml @ 0 mls/hr ONCE PRN IV For Hemorrhage Management 03/20/17 11:30 Methylergonovine Maleate (Methergine) 0.2 mg ONCE PRN IM VAGINAL BLEEDING 03/20/17 11:30 Carboprost Tromethamine (Hemabate) 250 mcg ONCE PRN IM VAGINAL BLEEDING 03/20/17 11:30 Misoprostol (Cytotec) 1,000 mcg ONCE PRN MA VAGINAL BLEEDING 03/20/17 11:30 Prenat Multivit/ [place]/Iron/Folic Ac () 1 tab DAILY PO 03/21/17 09:00 03/21/17 08:57 Oxycodone/ Acetaminophen (Percocet (5/ 325)) 1 tab Q4H PRN PO PAIN LEVEL 1-5 03/21/17 08:30 Oxycodone/ Acetaminophen (Percocet (5/ 325)) 2 tab Q4H PRN PO PAIN LEVEL 6-10 03/21/17 08:30 03/21/17 15:41 Ferrous Sulfate (Ferrous Sulfate (Ec)) 325 mg BID PO 03/21/17 21:00 UNV New born is doing well, Breast feeding IRLANDA MOTT MD Mar 21, 2017 16:31
[2017-03-21 20:00] VITALS: BP 131/68; PULSE 92; RESP 18
[2017-03-21] MEDS: FERROUS SULFATE (EC) 325 MG TAB PO SCH (21:24)
[2017-03-22] MEDS: LACTATED RINGER'S 1,000 ML IV SCH (03:01)
[2017-03-22 04:15] VITALS: BP 111/86; PULSE 90; RESP 18
[2017-03-22] MEDS: IBUPROFEN 800 MG TAB PO SCH ×3 (06:21→22:00)
[2017-03-22 08:30] VITALS: BP 134/83; PULSE 94; RESP 20
[2017-03-22] MEDS: FERROUS SULFATE (EC) 325 MG TAB PO SCH ×2 (09:07→20:13)
[2017-03-22] MEDS: PRENATAL VITAMIN PO SCH (09:08)
[2017-03-22] MEDS: OXYCODONE/ACETAMINOPHEN (5/325) TAB PO PRN ×2 (09:08→20:14)
[2017-03-22 16:15] VITALS: BP 130/80; PULSE 95; RESP 20
--- NOTE | 2017-03-22 19:47 | PN ---
Date/Time of Note Date/Time of Note DATE: 03/22/17 TIME: 19:45 OB Subjective Subjective Subjective Patient passed flatus. Breast-feeding. Denies any complaint. Tolerating regular diet. Ambulating.Denies any chest pain, shortness of breath, dizziness or lightheadedness OB Objective Objective Objective Hematology - 72 Hrs Test 03/20/17 06:20 03/21/17 10:28 White Blood Count 8.410^3/ul (4.8-10.8) 8.110^3/ul (4.8-10.8) Red Blood Count 4.2110^6/ul (4.20-5.40) 3.5510^6/ul (4.20-5.40) L Hemoglobin 8.9g/dl (12.0-16.0) L 7.1g/dl (12.0-16.0) #L Hematocrit 30.2% (37.0-47.0) L 26.5% (37.0-47.0) L Mean Corpuscular Volume 71.7fl (82.0-101.0) L 74.6fl (82.0-101.0) L Mean Corpuscular Hemoglobin 21.1pg (29.0-33.0) L 20.0pg (29.0-33.0) L Mean Corpuscular Hemoglobin Concent 29.5g/dl (32.0-37.0) L 26.8g/dl (32.0-37.0) L Red Cell Distribution Width 18.5% (11.5-14.5) H 18.9% (11.5-14.5) H Platelet Count 46266^3/UL (140-415) 05478^3/UL (140-415) Mean Platelet Volume fl (7.4-10.4) 12.7fl (7.4-10.4) #H Neutrophils % 61.5% (39.0-77.0) 62.1% (39.0-77.0) Lymphocytes % 27.7% (15.0-51.0) 30.5% (15.0-51.0) Monocytes % 8.9% (0.0-11.0) 6.0% (0.0-11.0) Eosinophils % 0.9% (0.0-7.0) 0.5% (0.0-7.0) Basophils % 0.6% (0.0-2.0) 0.2% (0.0-2.0) Nucleated Red Blood Cells % 0.0/100WBC (0.0-0.0) 0.0/100WBC (0.0-0.0) Neutrophils # 5.210^3/ul (1.6-7.5) 5.010^3/ul (1.6-7.5) Lymphocytes # 2.310^3/ul (0.8-2.9) 2.510^3/ul (0.8-2.9) Monocytes # 0.810^3/ul (0.3-0.9) 0.510^3/ul (0.3-0.9) Eosinophils # 0.110^3/ul (0.0-0.5) 0.010^3/ul (0.0-0.5) Basophils # 0.110^3/ul (0.0-0.1) 0.010^3/ul (0.0-0.1) Nucleated Red Blood Cells # 0.010^3/ul (0.0-0.0) 0.010^3/ul (0.0-0.0) General appearance: Alert and oriented 4. Patient does not appear to be in any acute distressAbdomen: Soft, fundus firm nontender. Appropriate tenderness in the incision. Incision clean dry and intact Normal bowel sounds audible Extremities: No calf tenderness, no click no edema Breast: No evidence of myositis or fascia OB Assessment/Plan Other Assessment: Postoperative day #2 Status post repeat section Doing well Anemia due to chronic anemia and surgery. Asymptomatic Patient had no care U tox requested. Continue routine postop care Follow up with urine drug screen tomorrow FRANCIS HIRSCH MD Mar 22, 2017 19:47
[2017-03-22 20:17] VITALS: BP 128/87; PULSE 95; RESP 18
[2017-03-23 04:00] VITALS: BP 130/92; PULSE 96; RESP 18
[2017-03-23] MEDS: IBUPROFEN 800 MG TAB PO SCH (05:41)
[2017-03-23 07:40] VITALS: BP 124/71; PULSE 99; RESP 18
[2017-03-23] MEDS: FERROUS SULFATE (EC) 325 MG TAB PO SCH (08:42)
[2017-03-23] MEDS: PRENATAL VITAMIN PO SCH (08:42)
--- NOTE | 2017-03-23 11:29 | DS ---
Date/Time of Note Date/Time of Note DATE: 03/23/17 TIME: 11:25 Obstetrical Discharge Record Final Diagnosis Final Diagnosis: Term delivered Section Section: Repeat Complications Gestational Age at Rupture Post C section day 3 Doing Well Afebrile Ambulatory Chest Clear Breasts are soft , Nipples are intact Abdomen is soft Fundus is firm Moderate amount of lochia Incision is clean ,No evidence of infection No calf tenderness No ankle edema Current Medications Medications (Trade) Dose Ordered Sig/Jace Route PRN Reason Start Time Stop Time Status Last Admin Dose Admin Lactated Ringer's 1,000 ml @ 125 mls/hr Q8H IV 03/20/17 06:06 03/20/17 11:05 DC 03/20/17 06:06 Cefazolin Sodium/ Dextrose 50 ml @ 100 mls/hr ONCE IV 03/20/17 06:30 03/20/17 11:05 DC 03/20/17 08:01 Oxytocin/Lactated Ringer's 500 ml @ 125 mls/hr ONCE IV 03/20/17 06:30 03/20/17 11:05 DC 03/20/17 10:15 Oxytocin/Lactated Ringer's 500 ml @ 0 mls/hr ONCE PRN IV For Hemorrhage Management 03/20/17 06:30 03/20/17 11:05 DC Methylergonovine Maleate (Methergine) 0.2 mg ONCE PRN IM VAGINAL BLEEDING 03/20/17 06:30 03/20/17 11:05 DC Carboprost Tromethamine (Hemabate) 250 mcg ONCE PRN IM VAGINAL BLEEDING 03/20/17 06:30 03/20/17 11:05 DC Misoprostol (Cytotec) 1,000 mcg ONCE PRN [place] VAGINAL BLEEDING 03/20/17 06:30 03/20/17 11:05 DC Morphine Sulfate (Duramorph) 10 mg STK-MED ONCE .ROUTE 03/20/17 07:40 03/20/17 07:41 DC Fentanyl (Sublimaze) 100 mcg STK-MED ONCE .ROUTE 03/20/17 07:41 03/20/17 07:42 DC Phenylephrine HCl (Raphael-Synephrine Inj Syg) 500 mcg STK-MED ONCE .ROUTE 03/20/17 07:41 03/20/17 07:42 DC Ondansetron HCl (Zofran Inj) 4 mg STK-MED ONCE .ROUTE 03/20/17 07:56 03/20/17 07:57 DC Dexamethasone (Decadron) 4 mg STK-MED ONCE .ROUTE 03/20/17 07:56 03/20/17 07:57 DC Phenylephrine HCl (Raphael-Synephrine Inj Syg) 500 mcg STK-MED ONCE .ROUTE 03/20/17 08:19 03/20/17 08:20 DC Naloxone HCl (Narcan) 0.1 mg Q2M PRN IV FOR RESP RATE 8 OR LESS 03/20/17 09:00 03/21/17 08:59 DC Ketorolac Tromethamine (Toradol) 30 mg Q6H PRN IV PAIN 03/20/17 09:00 03/21/17 08:59 DC 03/20/17 10:12 Hydromorphone HCl (Dilaudid) 0.2 mg Q3H PRN IV PAIN LEVEL 1-5 03/20/17 09:00 03/21/17 08:59 DC Hydromorphone HCl (Dilaudid) 0.4 mg Q3H PRN IV PAIN LEVEL 6-10 03/20/17 09:00 03/21/17 08:59 DC 03/20/17 21:27 Diphenhydramine HCl (Benadryl) 25 mg Q6H PRN IV ITCHING 03/20/17 09:00 03/21/17 08:59 DC 03/21/17 04:21 Ondansetron HCl (Zofran Inj) 4 mg Q6H PRN IV NAUSEA AND/OR VOMITING 03/20/17 09:00 03/21/17 08:59 DC Trimethobenzamide HCl (Tigan) 200 mg Q6H PRN IM NAUSEA AND/OR VOMITING 03/20/17 09:00 03/21/17 08:59 DC Zolpidem Tartrate 5 mg 5 mg HS MAY REPEAT X 1 PRN PO INSOMNIA 03/20/17 09:00 03/21/17 08:59 DC Lactated Ringer's 1,000 ml @ 125 mls/hr Q8H IV 03/20/17 11:01 03/22/17 08:08 DC 03/21/17 02:01 Oxytocin/Lactated Ringer's 500 ml @ 125 mls/hr Q4H IV 03/20/17 11:01 03/20/17 19:00 DC 03/20/17 15:15 Ibuprofen (Motrin) 800 mg Q8 PO 03/20/17 14:00 03/23/17 05:41 Simethicone (Mylicon) 160 mg Q8H PRN PO DISTENSION/GAS/BLOATING 03/20/17 11:30 03/22/17 09:09 Lanolin 1 applic 1 applic BEDSIDE MEDICATION PRN TOP BEDSIDE FOR [place] TO NIPPLES 03/20/17 11:30 03/20/17 18:43 Oxytocin/Lactated Ringer's 500 ml @ 0 mls/hr ONCE PRN IV For Hemorrhage Management 03/20/17 11:30 Methylergonovine Maleate (Methergine) 0.2 mg ONCE PRN IM VAGINAL BLEEDING 03/20/17 11:30 Carboprost Tromethamine (Hemabate) 250 mcg ONCE PRN IM VAGINAL BLEEDING 03/20/17 11:30 Misoprostol (Cytotec) 1,000 mcg ONCE PRN [place] VAGINAL BLEEDING 03/20/17 11:30 Prenat Multivit/ [place]/Iron/Folic Ac () 1 tab DAILY PO 03/21/17 09:00 03/23/17 08:42 Oxycodone/ Acetaminophen (Percocet (5/ 325)) 1 tab Q4H PRN PO PAIN LEVEL 1-5 03/21/17 08:30 03/23/17 05:44 Oxycodone/ Acetaminophen (Percocet (5/ 325)) 2 tab Q4H PRN PO PAIN LEVEL 6-10 03/21/17 08:30 03/22/17 20:14 Ferrous Sulfate (Ferrous Sulfate (Ec)) 325 mg BID PO 03/21/17 21:00 03/23/17 08:42 New born is doing well, Breast feeding Condition on Discharge Physical Assessment Voiding: Yes Bowel Movement: Yes Breast: Soft, non-tender Fundus: Firm Abdomen and Incision: .. .Healing well. Rickie to be removed in the clinic Calf Tenderness: No Patient Condition: Good IRLANDA MOTT MD Mar 23, 2017 11:29
== END 2017-03-23 13:05 | disposition home or self-care (01) | DRG 766 ==
LOC: OBT 05:54 → L-D 05:55 → PP1 11:16
PROC: 3E0P3VZ Introduction of Hormone into Female Reproductive, Percutaneous Approach (ICD-10-PCS; 2017-03-20)
PROC: 10D00Z1 Extraction of Products of Conception, Low, Open Approach (ICD-10-PCS; principal; 2017-03-20 07:30)
DX: O34.211 Maternal care for low transverse scar from previous cesarean delivery (principal); E66.9 Obesity, unspecified; O48.0 Post-term pregnancy; O99.214 Obesity complicating childbirth; Z68.38 Body mass index [BMI] 38.0-38.9, adult; O99.02 Anemia complicating childbirth; Z37.0 Single live birth; Z3A.41 41 weeks gestation of pregnancy
CPT/HCPCS: 85025; 85610; 85730; 86592; 86762; 86850; 86900; 86901; 87340; 94760; 99464; J0690; J1100; J1170; J1200; J1885; J2274; J2370; J2405; J2590; J3010; J7120